=== PATIENT | female | born 1955 | race Caucasian/White ===

== ENCOUNTER 2016-08-28 18:55 | Emergency (ER) | payer BC ==
[~2016-08-28] VITALS: Ht 162.6 cm; Wt 63.5 kg
[2016-08-28 19:09] VITALS: BP_SYST 152
[2016-08-28 21:35] VITALS: BP_SYST 129
== END 2016-08-28 21:35 | disposition home or self-care (01) ==
LOC: SED 18:55
DX: T18.9XXA Foreign body of alimentary tract, part unspecified, initial encounter (principal); Z88.5 Allergy status to narcotic agent; X58.XXXA Exposure to other specified factors, initial encounter; Y93.89 Activity, other specified; Y92.89 Other specified places as the place of occurrence of the external cause; Y99.8 Other external cause status
CPT/HCPCS: 74000-TC; 99283